=== PATIENT | male | born 1940 | race Two or more races ===

== ENCOUNTER 2021-10-27 15:31 | Inpatient (IN) ==
--- NOTE | 2021-10-27 16:19 | Emergency Department Note ---
History of Present Illness General Chief complaint: Weakness Stated complaint: CAN'T MOVE LT ARM, CAN'T MOVE LEGS, DR REFERRED Time Seen by Provider: 10/27/21 16:04 Source: patient and family (Daughter) Limitations: language barrier (Daughter is translating) History of Present Illness Provider complaint: Left arm weakness Onset (ago): day(s) Location: upper extremity and right Pain Consistency: + constant Maximum Pain Intensity: 2 Quality: + other (Unable to use left arm) Relieved By: + none Associated symptoms: + headaches; no confusion, no chest pain, no cough, no fever/chills, no malaise, no nausea/vomiting or no shortness of breath This is an 81-year-old male who presents with left arm weakness for the past 2 to 3 days. The patient normally has weakness in his legs due to an unknown illness. He is wheelchair-bound. He also had a stroke about 15 years ago and had developed residual right arm weakness. Over the past 2 to 3 days he has noticed that he has been unable to use the left upper extremity. He had no pain to the arm and did not become concerned initially. His family brings him in today. His daughter is translating for him. He does complain of a mild posterior headache but denies any neck pain. He has no numbness to the extremities. He has had no difficulty with his speech, vision or swallowing. He is normally hard of hearing. He denies any recent illness, fever, cough or cold symptoms, chest pain, shortness of breath, abdominal pain, vomiting, diarrhea or urinary symptoms. He is on aspirin daily which he takes. He denies any other blood thinners. Home Medications Medication Instructions Recorded Confirmed Type amlodipine 5 mg tablet 5 mg PO QAM 09/09/20 10/27/21 History atorvastatin 40 mg tablet 40 mg PO QAM 09/09/20 10/27/21 History cholecalciferol (vitamin D3) 25 25 mcg PO QAM 09/09/20 10/27/21 History mcg (1,000 unit) tablet (Vitamin D3) clopidogrel 75 mg tablet 75 mg PO QAM 09/09/20 10/27/21 History cyanocobalamin (vitamin B-12) 1,000 mcg PO QAM 09/09/20 10/27/21 History 1,000 mcg tablet (Vitamin B-12) duloxetine 60 mg capsule,delayed 60 mg PO QPM 09/09/20 10/27/21 History release finasteride 5 mg tablet 5 mg PO PM 09/09/20 10/27/21 History gabapentin 300 mg capsule 300 mg PO TID 09/09/20 10/27/21 History latanoprost 0.005 % eye drops 1 drp OPB HS 09/09/20 10/27/21 History meloxicam 7.5 mg tablet 7.5 mg PO QAM 09/09/20 10/27/21 History metformin 1,000 mg tablet 1,000 mg PO BIDM 09/09/20 10/27/21 History pantoprazole 40 mg tablet,delayed 40 mg PO QAM 09/09/20 10/27/21 History release sitagliptin 100 mg tablet (Januvia) 100 mg PO QAM 09/09/20 10/27/21 History tamsulosin 0.4 mg capsule 0.4 mg PO PM 09/09/20 10/27/21 History tramadol 50 mg tablet 50 mg PO HS 10/19/20 10/27/21 History albuterol sulfate 90 mcg/actuation 2 puff INHALATION Q4 PRN 10/27/21 10/27/21 History aerosol inhaler (Ventolin HFA) losartan 50 mg tablet 50 mg PO DAILY 10/27/21 10/27/21 History magnesium oxide 400 mg PO DAILY 10/27/21 10/27/21 History Allergies Allergy/AdvReac Type Severity Reaction Status Date / Time No Known Allergies Allergy Verified 10/27/21 16:29 Past Med/Surg History Medical History BPH (benign prostatic hyperplasia) Depression Diabetes NIDDM Gastritis GERD (gastroesophageal reflux disease) H/O poliomyelitis CHILD > RESIDUAL LEG WEAKNESS H/O: CVA (cerebrovascular accident) 10 YRS AGO > RIGHT HAND NUMBNESS > NO LONGER SEES NEURO Hypercholesterolemia Hypertension Leg weakness, bilateral Spinal stenosis of lumbar region Wheelchair bound Has been since CVA 10 yrs ago. Was previously able to self-transfer, but in the recenlty has not been able to move his LEs at all. Surgical History History of colonoscopy History of tooth extraction Hx of cataract extraction RT/LEFT Family History Daughter Family history of diabetes mellitus Other No family history of adverse response to anesthesia Social History Smoking Status: Former smoker Tobacco Type: Cigarettes Second Hand Exposure: Yes (IN THE PAST); Hx Alcohol Use: No Preferred Language: Tajik Communication Ability: Effective Location Analyst Required: No Beliefs That Will Affect Care: None marital status: Current Living Situation: Family Current Living Situation Comment: WITH DAUGHTER Feels Safe at Home: Yes Assistive Devices: Wheelchair Review of Systems See HPI for pertinent positives & negatives. and A total of 10 systems reviewed and were otherwise negative Physical Exam Vital Signs Vital Signs - 24 hr 10/27/21 15:34 10/27/21 17:34 Temperature 36.4 C L Temperature Source Temporal Artery Scan Pulse Rate 94 H Pulse Rate [Finger] 94 H Respiratory Rate 20 18 Respiratory Effort / Characteristics Non-Labored Non-Labored Respiratory Depth Normal Normal Blood Pressure 168/68 H Blood Pressure [Left Arm] 160/71 H Blood Pressure Mean 101 Blood Pressure Mean [Left Arm] 100 Blood Pressure Position [Left Arm] Lying Pulse Oximetry 99 99 Oxygen Delivery Method Room Air Room Air Sepsis Recent Fever Within 48 Hours No Sepsis New/Unexplained Change in Mental Status N/A Sepsis Action Taken by Nursing No Action Required Constitutional: Vital signs reviewed. Eyes: Pupils are equal round reactive to light. Conjunctiva are noninjected. ENT: Pharynx is clear without erythema or exudate. Mucous membranes are moist. Neck supple without meningeal signs. Respiratory: Clear to auscultation bilaterally. Breath sounds are equal bilaterally. Cardiovascular: Regular rate and rhythm. No rubs or gallops. GI: Soft, nondistended and nontender. Bowel sounds are present. Musculoskeletal: No peripheral edema. No lower extremity tenderness. Integumentary: No cyanosis. or jaundice. Neurologic: The patient is awake and alert. Cranial nerves II-XII are intact. Motor is 2 out of 5 in the lower extremities bilaterally as well as the left upper extremity. 3 out of 5 strength in the right upper extremity. Sensation is intact to light touch all extremities. Normal speech. Bilateral pronator drift greater on the left side which falls to the bed. Psychiatric: Normal affect. Not anxious appearing. Course Administered Medications Discontinued Medications Ioversol (Optiray 320 125ml) 120 ml IV ONCE ONE Stop: 10/27/21 17:17 Last Admin: 10/27/21 17:16 Dose: 1 ml Documented by: [id number] Medical Decision Making Differential Diagnosis CVA, TIA, intracranial mass, intracranial hemorrhage, thromboembolism, complex migraine Medical Records Attestation: I reviewed the patient's medical records. I did perform a limited focused review of portions of the patient's old chart on the electronic medical record. The patient has had no recent pertinent visits to this hospital. Home Medications Current Medication List: was personally reviewed by me Laboratory Data Attestation: I reviewed the patient's lab results. Result diagrams: 10/27/21 16:11 10/27/21 16:11 Lab Results 10/27/21 10/27/21 10/27/21 Range/Units 16:11 16:11 16:11 WBC 9.56 (4.8-10.8) K/uL RBC 4.51 L (4.7-6.1) M/uL Hgb 9.6 L (14.0-18.0) g/dL Hct 31.1 L (42-52) % MCV 69.0 L (80-100) fL MCH 21.3 L (25-34) pg MCHC 30.9 L (32-36) g/dL RDW Std Deviation 40.5 (36.4-46.3) fL RDW Coeff of David 16.3 H (11.5-14.5) % Plt Count 633 H (130-400) K/uL MPV 9.5 (7.4-10.4) fL Immature Gran % (Auto) 0.2 % Neut % (Auto) 72.8 % Lymph % (Auto) 17.1 % [place]arton % (Auto) 5.3 % Eos % (Auto) 4.3 % Baso % (Auto) 0.3 % Neut # (Auto) 6.96 H (1.4-6.5) K/uL Lymph # (Auto) 1.63 (1.2-3.4) K/uL [place]arton # (Auto) 0.51 (0.11-0.59) K/uL Eos # (Auto) 0.41 (0-0.5) K/uL Baso # (Auto) 0.03 (0-0.2) K/uL Immature Gran # (Auto) 0.02 (0.00-0.02) K/uL Hypochromasia Present Microcytosis Present Ovalocytes 1+ PT 10.4 (9.0-12.0) Seconds INR 1.0 (0.9-1.1) APTT 25.2 (21.0-31.0) Seconds PTT Ratio 0.9 Sodium 136 (136-145) mmol/L Potassium 4.7 (3.5-5.1) mmol/L Chloride 105 (98-107) mmol/L Carbon Dioxide 19 L (21-32) mmol/L Anion Gap 12 H (3-11) BUN 36 H (6-23) mg/dl Creatinine 0.78 (0.6-1.4) mg/dl Est Cr Clr Drug Dosing Not Reportable Est GFR ( Amer) 96.7 ml/min Est GFR (Non-Af Amer) 83.5 ml/min BUN/Creatinine Ratio 46.2 H (10-20) Glucose 125 H (70-99(Fasting)) mg/dl Calcium 9.2 (8.5-10.1) mg/dl Magnesium 1.6 L (1.7-2.4) mg/dl Total Bilirubin 0.2 (0.2-1.0) mg/dl AST 13 (13-39) U/L ALT 12 (7-52) U/L Alkaline Phosphatase 53 (34-104) U/L Troponin I < 0.03 (0-0.04) ng/ml Total Protein 8.5 H (6.0-8.3) gm/dl Albumin 3.9 (3.4-5.0) gm/dl Globulin 4.6 H (2.5-4.0) gm/dl Albumin/Globulin Ratio 0.8 L (0.9-2) SARS-CoV-2, RNA, NAAT (NEGATIVE) 10/27/21 Range/Units 16:56 WBC (4.8-10.8) K/uL RBC (4.7-6.1) M/uL Hgb (14.0-18.0) g/dL Hct (42-52) % MCV (80-100) fL MCH (25-34) pg MCHC (32-36) g/dL RDW Std Deviation (36.4-46.3) fL RDW Coeff of David (11.5-14.5) % Plt Count (130-400) K/uL MPV (7.4-10.4) fL Immature Gran % (Auto) % Neut % (Auto) % Lymph % (Auto) % [place]arton % (Auto) % Eos % (Auto) % Baso % (Auto) % Neut # (Auto) (1.4-6.5) K/uL Lymph # (Auto) (1.2-3.4) K/uL [place] # (Auto) (0.11-0.59) K/uL Eos # (Auto) (0-0.5) K/uL Baso # (Auto) (0-0.2) K/uL Immature Gran # (Auto) (0.00-0.02) K/uL Hypochromasia Microcytosis Ovalocytes PT (9.0-12.0) Seconds INR (0.9-1.1) APTT (21.0-31.0) Seconds PTT Ratio Sodium (136-145) mmol/L Potassium (3.5-5.1) mmol/L Chloride (98-107) mmol/L Carbon Dioxide (21-32) mmol/L Anion Gap (3-11) BUN (6-23) mg/dl Creatinine (0.6-1.4) mg/dl Est Cr Clr Drug Dosing Est GFR ( Amer) ml/min Est GFR (Non-Af Amer) ml/min BUN/Creatinine Ratio (10-20) Glucose (70-99(Fasting)) mg/dl Calcium (8.5-10.1) mg/dl Magnesium (1.7-2.4) mg/dl Total Bilirubin (0.2-1.0) mg/dl AST (13-39) U/L ALT (7-52) U/L Alkaline Phosphatase (34-104) U/L Troponin I (0-0.04) ng/ml Total Protein (6.0-8.3) gm/dl Albumin (3.4-5.0) gm/dl Globulin (2.5-4.0) gm/dl Albumin/Globulin Ratio (0.9-2) SARS-CoV-2, RNA, NAAT NEGATIVE (NEGATIVE) Imaging Data Radiologist's Impression: Chest X-Ray 10/27/21 16:13 XR chest 1V portable HISTORY: 81 years-old Male Stroke Like Symptoms acute strokelike symptoms COMPARISON: 09/09/2020 TECHNIQUE: Semierect AP view of the chest FINDINGS: Cardiac silhouette is mildly enlarged. Calcified plaque of the thoracic aorta. No pneumothorax or large pleural effusion or overt pulmonary edema. Unchanged mild interstitial coarsening with blunting of the costophrenic angles. Lungs are hypoinflated. Degenerative changes of the shoulders and spine. IMPRESSION: No acute process. ACT 112: Negative or not required by law. The above report was generated using voice recognition software. It may contain grammatical, syntax or spelling errors. Electronically signed by: Kurt Gallo M.D. 10/27/2021 4:[address] 10/27/21 16:13 CT head/brain wo con CLINICAL HISTORY: 81 years-old Male with left arm weakness x2 days. Acute strokelike symptoms TECHNIQUE: Multiple axial CT images of the head were obtained without contrast. A dose lowering technique was utilized adhering to the principles of ALARA. CT DOSE: 1163.19 mGy.cm COMPARISON: CTA head and neck of same day, brain MRI 09/10/2020. FINDINGS: No acute intracranial hemorrhage, midline shift, intracranial mass, hydro cephalus, territorial ischemia or abnormal extra-axial collection. Age-related involutional changes. Chronic left occipital lobe infarct with encephalomalacia and neck secondary to cardiomegaly the left lateral ventricle. White matter hypodensities suggest chronic microvascular ischemic disease. Chronic lacunar infarcts of the left cerebellar hemisphere. The calvarium is intact. Mastoid air cells are generally clear. Mucosal thickening of the partially imaged maxillary sinuses. Unremarkable soft tissues. Prior bilateral lens repair. IMPRESSION: 1. No acute intracranial abnormality. 2. Chronic left posterior cerebral artery infarct with chronic lacunar infarcts of the left cerebellum. ACT 112: Negative or not required by law. The above report was generated using voice recognition software. It may contain grammatical, syntax or spelling errors. Electronically signed by: Kurt Gallo M.D. 10/27/2021 5:30 PM Head CTA 10/27/21 16:13 CT angio neck with con, CT angio head w con CLINICAL HISTORY: 81 years-old Male with Stroke Like Symptoms. Acute strokelike symptoms COMPARISON STUDY: Head CT of same day, brain MRI 09/10/2020 TECHNIQUE: Following the IV administration of 120 mL of Optiray, CT angiogram of the head and neck was performed from the aortic arch to the skull apex. Images are reviewed in the axial, sagittal, and coronal planes. 3-D MIPS images are created and assessed. IV contrast was administered without complication. All measurements were calculated based on NASCET criteria. A dose lowering technique was utilized adhering to the principles of ALARA. FINDINGS: Atherosclerosis of the thoracic aorta and proximal great vessels. There is mild stenosis of the proximal left subclavian artery on image 75. The innominate and imaged right subclavian artery appear patent. The common carotid arteries are patent. Atherosclerotic plaque of the bilateral carotid bulbs results in less than 50% stenosis bilaterally. Calcified plaque is also noted within the cavernous, clinoid and supraclinoid segments of the internal carotid arteries. The middle and anterior cerebral arteries are patent. The right A1 segment is hypoplastic which is likely developmental. The left vertebral artery is dominant. Moderate stenosis at the origin of the left vertebral artery. Areas of high-grade stenosis noted within the proximal V1 segment of the right vertebral artery. Mild multifocal atherosclerotic plaque noted throughout the V2 and V3 segments of the right vertebral artery. The basilar artery is patent. Mild to moderate multifocal stenosis of the posterior cerebral arteries, greatest on the left. The cerebral venous sinuses are patent. No aneurysm, dissection or arterial occlusion identified. There is no abnormal intracranial enhancement. 5 mm solid nodule of the right upper lobe, image 38. 7 mm nodule of the right upper lobe on image 33 is suggestive of a lymph node. Probable lymph nodes of the left upper lobe are also noted measuring up to 6 mm. No pneumothorax. Nonspecific mildly prominent paratracheal lymph nodes. Multilevel degenerative changes of the cervical spine. There is moderate to severe partial opacification of the left maxillary sinus. Levoscoliosis of the cervical spine. IMPRESSION: 1. Chronic left posterior cerebral artery infarct with chronic lacunar infarcts of the left cerebellar hemisphere. 2. Atherosclerotic plaque of the left greater than right carotid bulbs results i n less than 50% stenosis bilaterally. 3. 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 4. Mild to moderate multifocal stenoses of the posterior cerebral arteries. 5. No aneurysm, dissection or arterial occlusion. 6. Subcentimeter solid nodules in the upper lobes. Please refer to below summary of Fleischner criteria recommendations for follow- up of incidental CT nodules (Wil Clinton, Guidelines for management of small pulmonary nodules detected on CT scans: A statement from the Fleischner Society, Radiology [phone]: [phone].) SOLID NODULES Multiple nodules size: <6 mm * Low risk patients: no routine follow-up * high risk patients: optional CT at 12 months Multiple nodules size: 6-8 mm * Low risk patients: follow-up at 3-6 months, then consider further follow-up at 18-24 months * high risk patients: follow-up at 3-6 months, then at 18-24 months if no change Multiple nodules size: >8 mm * Low risk patients: follow-up at 3-6 months, then consider further follow-up at 18-24 months * high risk patients: follow-up at 3-6 months, then at 18-24 months if no change Note: newly detected indeterminate nodule in persons 35 years of age or older. * Low risk patients: minimal or absent history of smoking and/or other known risk factors * high risk patients: history of smoking or of other known risk factors (e.g. first degree relative with lung cancer, or exposure to asbestos, radon, uranium) * if a nodule up to 8 mm is partly solid or is ground glass further follow-up is required after 24 months to exclude possible slow growing adenocarcinoma (SUAD) ACT 112: Negative or not required by law. The above report was generated using voice recognition software. It may contain grammatical, syntax or spelling errors. Electronically signed by: Kurt Gallo M.D. 10/27/2021 5:43 PM Neck CTA 10/27/21 16:13 CT angio neck with con, CT angio head w con CLINICAL HISTORY: 81 years-old Male with Stroke Like Symptoms. Acute strokelike symptoms COMPARISON STUDY: Head CT of same day, brain MRI 09/10/2020 TECHNIQUE: Following the IV administration of 120 mL of Optiray, CT angiogram of the head and neck was performed from the aortic arch to the skull apex. Images are reviewed in the axial, sagittal, and coronal planes. 3-D MIPS images are created and assessed. IV contrast was administered without complication. All measurements were calculated based on NASCET criteria. A dose lowering technique was utilized adhering to the principles of ALARA. FINDINGS: Atherosclerosis of the thoracic aorta and proximal great vessels. There is mild stenosis of the proximal left subclavian artery on image 75. The innominate and imaged right subclavian artery appear patent. The common carotid arteries are patent. Atherosclerotic plaque of the bilateral carotid bulbs results in less than 50% stenosis bilaterally. Calcified plaque is also noted within the cavernous, clinoid and supraclinoid segments of the internal carotid arteries. The middle and anterior cerebral arteries are patent. The right A1 segment is hypoplastic which is likely developmental. The left vertebral artery is dominan t. Moderate stenosis at the origin of the left vertebral artery. Areas of high- grade stenosis noted within the proximal V1 segment of the right vertebral artery. Mild multifocal atherosclerotic plaque noted throughout the V2 and V3 segments of the right vertebral artery. The basilar artery is patent. Mild to moderate multifocal stenosis of the posterior cerebral arteries, greatest on the left. The cerebral venous sinuses are patent. No aneurysm, dissection or arterial occlusion identified. There is no abnormal intracranial enhancement. 5 mm solid nodule of the right upper lobe, image 38. 7 mm nodule of the right upper lobe on image 33 is suggestive of a lymph node. Probable lymph nodes of the left upper lobe are also noted measuring up to 6 mm. No pneumothorax. No nspecific mildly prominent paratracheal lymph nodes. Multilevel degenerative changes of the cervical spine. There is moderate to severe partial opacification of the left maxillary sinus. Levoscoliosis of the cervical spine. IMPRESSION: 1. Chronic left posterior cerebral artery infarct with chronic lacunar infarcts of the left cerebellar hemisphere. 2. Atherosclerotic plaque of the left greater than right carotid bulbs results in less than 50% stenosis bilaterally. 3. 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 4. Mild to moderate multifocal stenoses of the posterior cerebral arteries. 5. No aneurysm, dissection or arterial occlusion. 6. Subcentimeter solid nodules in the upper lobes. Please refer to below summary of Fleischner criteria recommendations for follow- up of incidental CT nodules (Wil Clinton, Guidelines for management of small pulmonary nodules detected on CT scans: A statement from the Fleischner Society, Radiology [phone]: [phone].) SOLID NODULES Multiple nodules size: <6 mm * Low risk patients: no routine follow-up * high risk patients: optional CT at 12 months Multiple nodules size: 6-8 mm * Low risk patients: follow-up at 3-6 months, then consider further follow-up at 18-24 months * high risk patients: follow-up at 3-6 months, then at 18-24 months if no change Multiple nodules size: >8 mm * Low risk patients: follow-up at 3-6 months, then consider further follow-up at 18-24 months * high risk patients: follow-up at 3-6 months, then at 18-24 months if no change Note: newly detected indeterminate nodule in persons 35 years of age or older. * Low risk patients: minimal or absent history of smoking and/or other known risk factors * high risk patients: history of smoking or of other known risk factors (e.g. first degree relative with lung cancer, or exposure to asbestos, radon, uranium) * if a nodule up to 8 mm is partly solid or is ground glass further follow-up is required after 24 months to exclude possible slow growing adenocarcinoma (SUAD) ACT 112: Negative or not required by law. The above report was generated using voice recognition software. It may contain grammatical, syntax or spelling errors. Electronically signed by: Kurt Gallo M.D. 10/27/2021 5:43 PM ECG Data Attestation: I personally reviewed and interpreted this ECG as follows: Indication: + other (Strokelike symptoms) Rate (beats per minute): 90 Rhythm: + normal sinus ECG [place]: + Left axis deviation ECG ST segments: no ST elevation ECG Findings: no PVCs Comparison ECG Date: from (September 09, 2020) Change: no significant change MDM Narrative I did evaluate the patient as noted above. I did obtain history from the patient as well as his daughter who is translating for him. He has had left arm weakness for the past 2 to 3 days. On exam he has weakness throughout his extremities due to prior stroke and illness. His only new neurologic finding today is weakness in the left arm which she was previously able to use. He is not a TPA candidate as the patient symptoms started 2 to 3 days ago. IV access was established. I did place an order for continuous cardiac monitoring. The monitor showed normal sinus rhythm at a rate of 92 bpm. I did order and personally review the patient's 12-lead EKG as described above. He has no acute ischemic changes. I did order and personally reviewed the images of the patient's chest x-ray as described above. There is no evidence of pneumonia. I did order and review the patient's blood work as noted in the electronic medical record. CBC demonstrates a white count of 9.5 and a platelet count of 633. Hemoglobin is 9.6. His last hemoglobin was 10.9 in October 2020. Electrolytes demonstrate a CO2 of 19 and a mag of 1.6. LFTs are unremarkable. Troponin is negative. I did order a CT of the head and CT angiogram of the head neck. I did review the images myself as well as the radiology report as described above. CT of the head shows a chronic left posterior cerebral artery infarct with chronic lacunar infarcts of the left cerebellum. Otherwise no acute abnormality. CT angiogram demonstrates atherosclerotic plaque of the left greater than right carotid bulbs resulting in less than 50% stenosis aaron aterally. There is stenosis of the proximal V1 segment of the vertebral arteries severe on the right. Mild to moderate multifocal stenosis of the posterior cerebral arteries. I did discuss the test results with the patient and his daughter. He will be hospitalized for MRI and further work-up. I did discuss the case with the hospitalist and manager case management. Covid testing is negative. Impression & Plan Left arm weakness, Chronic anemia Discharge Plan Visit Data Chief Complaint: Weakness Stated Complaint: CAN'T MOVE LT ARM, CAN'T MOVE LEGS, DR REFERRED ED Provider: Bert Feldman Discharge Problem: Left arm weakness, Chronic anemia Patient Disposition: Being Evaluated by Hospitalist Forms Stand Alone Forms: My [facility] Prescriptions Prescriptions: No Action latanoprost 0.005 % drops 1 drp OPB HS RF: 0 atorvastatin 40 mg tablet 40 mg PO QAM RF: 0 cyanocobalamin (vitamin B-12) [Vitamin B-12] 1,000 mcg Tablet 1,000 mcg PO QAM RF: 0 clopidogrel 75 mg tablet 75 mg PO QAM RF: 0 amlodipine 5 mg tablet 5 mg PO QAM RF: 0 meloxicam 7.5 mg tablet 7.5 mg PO QAM RF: 0 tamsulosin 0.4 mg Capsule 0.4 mg PO PM RF: 0 pantoprazole 40 mg tablet,delayed release (DR/EC) 40 mg PO QAM RF: 0 metformin 1,000 mg tablet 1,000 mg PO BIDM RF: 0 gabapentin 300 mg capsule 300 mg PO TID RF: 0 finasteride 5 mg tablet 5 mg PO PM RF: 0 duloxetine 60 mg capsule,delayed release(DR/EC) 60 mg PO QPM RF: 0 cholecalciferol (vitamin D3) [Vitamin D3] 25 mcg (1,000 unit) Tablet 25 mcg PO QAM RF: 0 Januvia 100 mg tablet 100 mg PO QAM RF: 0 tramadol 50 mg Tablet 50 mg PO HS RF: 0 magnesium oxide 400 mg magnesium Tablet 400 mg PO DAILY RF: 0 losartan 50 mg tablet 50 mg PO DAILY RF: 0 albuterol sulfate [Ventolin HFA] 90 mcg/actuation HFA aerosol inhaler 2 puff INHALATION Q4 PRN (Reason: sough,sob,wheeze) RF: 0 Referrals Referrals: Arnol Mann MD [Primary Care Provider] -
[2021-10-27 16:22] LABS: Basophils # (auto) 0.03 K/uL (0-0.2); Basophils % (auto) 0.3 %; Eosinophils # (auto) 0.41 K/uL (0-0.5); Eosinophils % (auto) 4.3 %; Hematocrit (blood only) 31.1 % (42-52); Hemoglobin 9.6 g/dL (14.0-18.0); Immature Granulocytes # (auto) 0.02 K/uL (0.00-0.02); Immature Granulocytes % (auto) 0.2 %; Lymphocytes # (auto) 1.63 K/uL (1.2-3.4); Lymphocytes % (auto) 17.1 %; Mean Corpuscular Hemoglobin 21.3 pg (25-34); Mean Corpuscular Hgb Conc 30.9 g/dL (32-36); Mean Platelet Volume 9.5 fL (7.4-10.4); Monocytes # (auto) 0.51 K/uL (0.11-0.59); Monocytes % (auto) 5.3 %; Neutrophils # (auto) 6.96 K/uL (1.4-6.5); Neutrophils % (auto) 72.8 %; Platelet Count 633 K/uL (130-400); RDW Coefficient of Variation 16.3 % (11.5-14.5); RDW Standard Deviation 40.5 fL (36.4-46.3); Red Blood Count 4.51 M/uL (4.7-6.1); White Blood Count 9.56 K/uL (4.8-10.8)
[2021-10-27 16:33] LABS: Partial Thromboplastin Ratio 0.9; Partial Thromboplastin Time 25.2 Seconds (21.0-31.0); Prothrombin Time 10.4 Seconds (9.0-12.0)
--- NOTE | 2021-10-27 16:40 | XRay Report ---
XR chest 1V portable HISTORY: 81 years-old Male Stroke Like Symptoms acute strokelike symptoms COMPARISON: 09/09/2020 TECHNIQUE: Semierect AP view of the chest FINDINGS: Cardiac silhouette is mildly enlarged. Calcified plaque of the thoracic aorta. No pneumothorax or lar ge pleural effusion or overt pulmonary edema. Unchanged mild interstitial coarsening with blunting of the costophrenic angles. Lungs are hypoinflated. Degenerative changes of the shoulders and spine. IMPRESSION: No acute process. ACT 112: Negative or not required by law. The above report was generated using voice recognition software. It may contain grammatical, syntax o r spelling errors. Electronically signed by: Kurt Gallo M.D. 10/27/2021 4:39 PM
[2021-10-27 16:45] LABS: Troponin I < 0.03 ng/ml (0-0.04)
[2021-10-27 16:47] LABS: Alanine Aminotransferase 12 U/L (7-52); Albumin Globulin Ratio 0.8 (0.9-2); Albumin Level 3.9 gm/dl (3.4-5.0); Alkaline Phosphatase 53 U/L (34-104); Anion Gap 12 (3-11); Aspartate Aminotransferase 13 U/L (13-39); BUN Creatinine Ratio 46.2 (10-20); Bilirubin,Total 0.2 mg/dl (0.2-1.0); Blood Urea Nitrogen 36 mg/dl (6-23); Calcium 9.2 mg/dl (8.5-10.1); Carbon Dioxide 19 mmol/L (21-32); Chloride 105 mmol/L (98-107); Est GFR (African American) 96.7 ml/min; Est GFR (Non-African American) 83.5 ml/min; Globulin 4.6 gm/dl (2.5-4.0); Glucose 125 mg/dl (70-99(Fasting)); Magnesium 1.6 mg/dl (1.7-2.4); Potassium 4.7 mmol/L (3.5-5.1); Sodium 136 mmol/L (136-145); Total Protein 8.5 gm/dl (6.0-8.3)
[2021-10-27 17:08] LABS: Hypochromasia Present; Microcytosis Present; Ovalocytes 1+
[2021-10-27] MEDS ORDERED: OPTIRAY 320 125ml IV ONE (17:16)
--- NOTE | 2021-10-27 17:31 | CT Scan Report ---
CT head/brain wo con CLINICAL HISTORY: 81 years-old Male with left arm weakness x2 days. Acute strokelike symptoms TECHNIQUE: Multiple axial CT images of the head were obtained without contrast. A dose lowering tech nique was utilized adhering to the principles of ALARA. CT DOSE: 1163.19 mGy.cm COMPARISON: CTA head and neck of same day, brain MRI 09/10/2020. FINDINGS: No acute intracranial hemorrhage, midline shift, intracranial mass, hydrocephalus, territorial ischem ia or abnormal extra-axial collection. Age-related involutional changes. Chronic left occipital lobe infarct with encephalomalacia and neck secondary to cardiomegaly the left lateral ventricle. White ma tter hypodensities suggest chronic microvascular ischemic disease. Chronic lacunar infarcts of the le ft cerebellar hemisphere. The calvarium is intact. Mastoid air cells are generally clear. Mucosal thickening of the partially imaged maxillary sinuses. Unremarkable soft tissues. Prior bilateral lens repair. IMPRESSION: 1. No acute intracranial abnormality. 2. Chronic left posterior cerebral artery infarct with chronic lacunar infarcts of the left cerebellu m. ACT 112: Negative or not required by law. The above report was generated using voice recognition software. It may contain grammatical, syntax o r spelling errors. Electronically signed by: Kurt Gallo M.D. 10/27/2021 5:30 PM
--- NOTE | 2021-10-27 17:45 | CT Scan Report ---
CT angio neck with con, CT angio head w con CLINICAL HISTORY: 81 years-old Male with Stroke Like Symptoms. Acute strokelike symptoms COMPARISON STUDY: Head CT of same day, brain MRI 09/10/2020 TECHNIQUE: Following the IV administration of 120 mL of Optiray, CT angiogram of the head and neck wa s performed from the aortic arch to the skull apex. Images are reviewed in the axial, sagittal, and c oronal planes. 3-D MIPS images are created and assessed. IV contrast was administered without complic ation. All measurements were calculated based on NASCET criteria. A dose lowering technique was util ized adhering to the principles of ALARA. FINDINGS: Atherosclerosis of the thoracic aorta and proximal great vessels. There is mild stenosis of the proxi mal left subclavian artery on image 75. The innominate and imaged right subclavian artery appear ramon nt. The common carotid arteries are patent. Atherosclerotic plaque of the bilateral carotid bulbs res ults in less than 50% stenosis bilaterally. Calcified plaque is also noted within the cavernous, clin oid and supraclinoid segments of the internal carotid arteries. The middle and anterior cerebral dana vickie are patent. The right A1 segment is hypoplastic which is likely developmental. The left vertebra l artery is dominant. Moderate stenosis at the origin of the left vertebral artery. Areas of high-gra de stenosis noted within the proximal V1 segment of the right vertebral artery. Mild multifocal ather osclerotic plaque noted throughout the V2 and V3 segments of the right vertebral artery. The basilar artery is patent. Mild to moderate multifocal stenosis of the posterior cerebral arteries, greatest o n the left. The cerebral venous sinuses are patent. No aneurysm, dissection or arterial occlusion fer ntified. There is no abnormal intracranial enhancement. 5 mm solid nodule of the right upper lobe, image 38. 7 mm nodule of the right upper lobe on image 33 is suggestive of a lymph node. Probable lymph nodes of the left upper lobe are also noted measuring u p to 6 mm. No pneumothorax. Nonspecific mildly prominent paratracheal lymph nodes. Multilevel degener ative changes of the cervical spine. There is moderate to severe partial opacification of the left ma xillary sinus. Levoscoliosis of the cervical spine. IMPRESSION: 1. Chronic left posterior cerebral artery infarct with chronic lacunar infarcts of the left cerebella r hemisphere. 2. Atherosclerotic plaque of the left greater than right carotid bulbs results in less than 50% steno sis bilaterally. 3. 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 4. Mild to moderate multifocal stenoses of the posterior cerebral arteries. 5. No aneurysm, dissection or arterial occlusion. 6. Subcentimeter solid nodules in the upper lobes. Please refer to below summary of Fleischner criteria recommendations for follow-up of incidental CT n odules (Wil [place], Guidelines for management of small pulmonary nodules detected on CT scans: A sta tement from the Fleischner Society, Radiology 237: [phone].) SOLID NODULES Multiple nodules size: <6 mm * Low risk patients: no routine follow-up * high risk patients: optional CT at 12 months Multiple nodules size: 6-8 mm * Low risk patients: follow-up at 3-6 months, then consider further follow-up at 18-24 months * high risk patients: follow-up at 3-6 months, then at 18-24 months if no change Multiple nodules size: >8 mm * Low risk patients: follow-up at 3-6 months, then consider further follow-up at 18-24 months * high risk patients: follow-up at 3-6 months, then at 18-24 months if no change Note: newly detected indeterminate nodule in persons 35 years of age or older. * Low risk patients: minimal or absent history of smoking and/or other known risk factors * high risk patients: history of smoking or of other known risk factors (e.g. first degree relative with lung cancer, or exposure to asbestos, radon, uranium) * if a nodule up to 8 mm is partly solid or is ground glass further follow-up is required after 24 m onths to exclude possible slow growing adenocarcinoma (SUAD) ACT 112: Negative or not required by law. The above report was generated using voice recognition software. It may contain grammatical, syntax o r spelling errors. Electronically signed by: Kurt Gallo M.D. 10/27/2021 5:43 PM
--- NOTE | 2021-10-27 19:19 | History & Physical Report ---
Date of Service October 27, 2021 Assessment & Plan (1) Left arm weakness: Plan: Presented with left upper extremity weakness for the last 2 days without any sensory impairment No pain involving the shoulder joint CT scan of the head did not show any new stroke CTA showed: 1.Chronic left posterior cerebral artery infarct with chronic lacunar infarcts of the left cerebellar hemisphere. 2. Atherosclerotic plaque of the left greater than right carotid bulbs results in less than 50% stenosis bilaterally. 3. 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 4. Mild to moderate multifocal stenoses of the posterior cerebral arteries. 5. No aneurysm, dissection or arterial occlusion. 6. Subcentimeter solid nodules in the upper lobes. Has been on Plavix and will add aspirin 81 mg for now We will get MRI of the head Neurological consult tomorrow PT and OT (2) H/O: CVA (cerebrovascular accident): Plan: History of a stroke with right hemiparesis (3) H/O poliomyelitis: Plan: Poliomyelitis with paraplegia May be disease progression given the new symptoms of left upper extremity weakness (4) Diabetes: Plan: We will hold Metformin and Jardiance Start SSI and check hemoglobin A1c (5) Spinal stenosis of lumbar region: Plan: Has chronic back pain We will continue current medications (6) Hypertension: Plan: Pressure remains on the upper side at 160 systolic We will continue current medications (7) Hypercholesterolemia: Plan: Continue statin DVT prophylaxis Subcu heparin CODE STATUS Full History of Present Illness Chief Complaint: Left upper extremity weakness for the last 2 days Primary Care Provider: Arnol Mann MD He is an 81-year-old male with significant past medical history including poliomyelitis with paraplegia, type 2 diabetes, hypertension, hyperlipidemia, spinal stenosis with chronic back pain, COPD and history of CVA with right-sided hemiparesis apparently has been complaining of left upper extremity weakness for the last 2 days. He denies any numbness and or tingling involving the left upper extremity and denies any significant pain involving the left shoulder. Part of the history was taken from the daughter. She was noted to have left upper extremity weakness for the last 2 days to the extent that he cannot sit on a chair which he was doing before and he has been wheelchair-bound due to polio He complains of some headache but without any blurred vision, any problem with his speech or any problem with swallowing. He also complains to have back pain and pain in the rectal area especially during defecation and which has been an ongoing problem though he is not constipated. He was noted to be minimally hypertensive at 160/71 in the emergency room and apparently scan did show stenosis involving the neck vessels with old stroke but no new lesions. He will have an MRI rule out any possibility of a stroke during this admission. Allergies Allergy/AdvReac Type Severity Reaction Status Date / Time No Known Allergies Allergy Verified 10/27/21 16:29 Home Medications Medication Instructions Recorded Confirmed Type amlodipine 5 mg tablet 5 mg PO QAM 09/09/20 10/27/21 History atorvastatin 40 mg tablet 40 mg PO QAM 09/09/20 10/27/21 History cholecalciferol (vitamin D3) 25 25 mcg PO QAM 09/09/20 10/27/21 History mcg (1,000 unit) tablet (Vitamin D3) clopidogrel 75 mg tablet 75 mg PO QAM 09/09/20 10/27/21 History cyanocobalamin (vitamin B-12) 1,000 mcg PO QAM 09/09/20 10/27/21 History 1,000 mcg tablet (Vitamin B-12) duloxetine 60 mg capsule,delayed 60 mg PO QPM 09/09/20 10/27/21 History release finasteride 5 mg tablet 5 mg PO PM 09/09/20 10/27/21 History gabapentin 300 mg capsule 300 mg PO TID 09/09/20 10/27/21 History latanoprost 0.005 % eye drops 1 drp OPB HS 09/09/20 10/27/21 History meloxicam 7.5 mg tablet 7.5 mg PO QAM 09/09/20 10/27/21 History metformin 1,000 mg tablet 1,000 mg PO BIDM 09/09/20 10/27/21 History pantoprazole 40 mg tablet,delayed 40 mg PO QAM 09/09/20 10/27/21 History release sitagliptin 100 mg tablet (Januvia) 100 mg PO QAM 09/09/20 10/27/21 History tamsulosin 0.4 mg capsule 0.4 mg PO PM 09/09/20 10/27/21 History tramadol 50 mg tablet 50 mg PO HS 10/19/20 10/27/21 History albuterol sulfate 90 mcg/actuation 2 puff INHALATION Q4 PRN 10/27/21 10/27/21 History aerosol inhaler (Ventolin HFA) losartan 50 mg tablet 50 mg PO DAILY 10/27/21 10/27/21 History magnesium oxide 400 mg PO DAILY 10/27/21 10/27/21 History Past Med/Surg History Medical History BPH (benign prostatic hyperplasia) Depression Diabetes NIDDM Gastritis GERD (gastroesophageal reflux disease) H/O poliomyelitis CHILD > RESIDUAL LEG WEAKNESS H/O: CVA (cerebrovascular accident) 10 YRS AGO > RIGHT HAND NUMBNESS > NO LONGER SEES NEURO Hypercholesterolemia Hypertension Leg weakness, bilateral Spinal stenosis of lumbar region Wheelchair bound Has been since CVA 10 yrs ago. Was previously able to self-transfer, but in the recenlty has not been able to move his LEs at all. Surgical History History of colonoscopy History of tooth extraction Hx of cataract extraction RT/LEFT Family History Daughter Family history of diabetes mellitus Other No family history of adverse response to anesthesia Social History Smoking Status: Former smoker Tobacco Type: Cigarettes Second Hand Exposure: Yes (IN THE PAST); Hx Alcohol Use: No Preferred Language: Luxembourger Communication Ability: Effective Monorail Hooker Required: No Beliefs That Will Affect Care: None marital status: Current Living Situation: Family Current Living Situation Comment: WITH DAUGHTER Feels Safe at Home: Yes Assistive Devices: Wheelchair Review of Systems Review of Systems: All systems reviewed & are unremarkable except as noted in HPI & below Musculoskeletal: Left upper extremity weakness Neurologic: Alert and awake. Speech not totally normal but nothing changed compared with prior, Physical Exam Physical Exam: Lying in bed comfortably Constitutional: well developed, well nourished, + ill appearing and average body habitus Eyes: PERRL, conjunctivae normal, anicteric sclerae ENMT: external ear and nose normal, oropharynx normal Neck: trachea midline, no thyromegaly Respiratory: no respiratory distress Auscultation: + diminished lung sounds; no crackles Cardiovascular: Rate/Rhythm: regular rate and regular rhythm; not tachycardic Heart Sounds: normal S1 and normal S2; no murmur Extremities: + edema (Trace edema bilaterally) Gastrointestinal (Abdomen): Inspection/Auscultation: normal bowel sounds; abdomen not distended Percussion/Palpation: abdomen soft; abdomen nontender Musculoskeletal: No acute arthritis involving any joint Neurologic: normal touch/pain/proprioception Alert and awake. Has paraplegia with flexion deformities of the lower extremities. Can minimally move lower extremities. Has right-sided upper extremity weakness secondary to prior stroke. New left upper extremity weakness of about 2/5 with intact sensation. He does have flexion changes involving the fingers. Results & Data Results & Data ([facility]) Vital Signs (Past 12 Hours) Vital Signs Temp Pulse Pulse Resp BP BP Pulse Ox 10/27/21 17:34 94 H 18 160/71 H 99 10/27/21 15:34 36.4 C L 94 H 20 168/68 H 99 Laboratory Results Short CBC 10/27/21 Range/Units 16:11 WBC 9.56 (4.8-10.8) K/uL Hgb 9.6 L (14.0-18.0) g/dL Hct 31.1 L (42-52) % Plt Count 633 H (130-400) K/uL BMP 10/27/21 16:11 Sodium 136 Potassium 4.7 Chloride 105 Carbon Dioxide 19 L BUN 36 H Creatinine 0.78 Glucose 125 H Calcium 9.2 Cardiac Enzymes 10/27/21 Range/Units 16:11 Troponin I < 0.03 (0-0.04) ng/ml Liver Function 10/27/21 Range/Units 16:11 Total Bilirubin 0.2 (0.2-1.0) mg/dl AST 13 (13-39) U/L ALT 12 (7-52) U/L Alkaline Phosphatase 53 (34-104) U/L Albumin 3.9 (3.4-5.0) gm/dl Medications Administered Current Inpatient Medications Aspirin (Aspirin 81 Mg Ectab) 81 mg PO DAILY AYDEN Stop: 11/26/21 19:14 Enoxaparin Sodium (Enoxaparin Inj 40 Mg/0.4 Ml Syr) 40 mg SQ QAM AYDEN Stop: 11/26/21 19:14 Code Status & VTE Plan VTE Prophylaxis Plan VTE Prophylaxis will be ordered: Yes (1) Spinal stenosis of lumbar region Neurogenic claudication status: with neurogenic claudication Qualified Code(s): M48.062 - Spinal stenosis, lumbar region with neurogenic claudication
[2021-10-27] MEDS ORDERED: hydrALAZINE HCL 20 MG/ML VIAL IV PRN (20:15)
[2021-10-27] MEDS ORDERED: GLUCOSE 10 TABS/TUBE PO PRN (20:30)
[2021-10-27] MEDS ORDERED: CARBOHYDRATES FOR HYPOGLYCEMIA PO PRN (20:30)
[2021-10-27] MEDS ORDERED: GLUCAGON FOR INJ 1 MG VIAL IM PRN (20:30)
[2021-10-27] MEDS ORDERED: DEXTROSE 50% 50 ML SYRINGE IV PRN (20:30)
[2021-10-27] MEDS ORDERED: GLUCOSE 40% GEL 15 GM TUBE PO PRN (20:30)
--- NOTE | 2021-10-27 21:11 | Magnetic Resonance Report ---
MR brain wo con HISTORY: 81 years-old Male R/O stroke acute strokelike symptoms COMPARISON: Brain MRI 09/10/2020 TECHNIQUE: Multiplanar multisequence MRI of the brain was obtained without the use of IV contrast. FINDINGS: General Activities Therapist localizer images demonstrate no gross extracranial abnormality. Motion degraded exam. This no r estricted diffusion to suggest acute or subacute infarct. No acute intracranial hemorrhage, midline s hift, abnormal extra-axial collection, hydrocephalus or intracranial mass. Chronic infarct of the lef t posterior cerebral artery distribution with encephalomalacia and gliosis. Expected ex vacuo ventric ulomegaly of the posterior and temporal horns of the left lateral ventricle. Age- related involutiona l changes with ex vacuo ventriculomegaly. Mild to moderate T2/FLAIR hyperintensities throughout the w niurka matter are suggestive of chronic microvascular ischemic disease. Cerebral venous sinuses and major arterial flow voids appear patent. Trace mastoid effusions. Mild mu cosal thickening of the paranasal sinuses. Prior bilateral lens replacement. Skull and soft tissues a re unremarkable. IMPRESSION: 1. No acute intracranial abnormality. No acute or subacute infarct. 2. Age-related involutional changes with chronic microvascular ischemic disease. 3. Chronic left posterior cerebral artery infarct with chronic lacunar infarcts of the cerebellum. ACT 112: Negative or not required by law. The above report was generated using voice recognition software. It may contain grammatical, syntax o r spelling errors. Electronically signed by: Kurt Gallo M.D. 10/27/2021 9:09 PM
[2021-10-27] MEDS ORDERED: ALBUTEROL HFA 8 GM INHALER INH PRN (21:41)
[2021-10-27] MEDS: ASPIRIN 81 MG ECTAB PO SCH (22:16)
[2021-10-27] MEDS: ENOXAPARIN INJ 40 MG/0.4 ML SYR SQ SCH (22:16)
[2021-10-27] MEDS: traMADol HCL 50 MG TABLET PO SCH (22:17)
[2021-10-27] MEDS: INSULIN ASPART PER UNIT SC SCH (22:17)
[2021-10-27] MEDS: DULoxetine HCL 60 MG CAP PO SCH (22:19)
[2021-10-27] MEDS: LATANOPROST 0.005% OP SOLN 2.5 ML BTL OPB SCH (22:20)
[2021-10-27] MEDS: TAMSULOSIN HCL 0.4 MG CAP PO SCH (22:20)
[2021-10-27] MEDS: amLODIPine BESYLATE 5 MG TAB PO SCH (22:21)
[2021-10-27] MEDS: FINASTERIDE 5 MG TAB PO SCH (22:21)
[2021-10-27] MEDS: GABAPENTIN 300 MG CAP PO SCH (22:21)
[2021-10-28] MEDS: MAGNESIUM SULFATE / D5W 1 GM/100 ML BAG IV SCH ×2 (04:39→05:29)
[2021-10-28 05:33] LABS: Basophils # (auto) 0.03 K/uL (0-0.2); Basophils % (auto) 0.4 %; Eosinophils # (auto) 0.45 K/uL (0-0.5); Eosinophils % (auto) 5.8 %; Hematocrit (blood only) 29.7 % (42-52); Hemoglobin 9.3 g/dL (14.0-18.0); Immature Granulocytes # (auto) 0.02 K/uL (0.00-0.02); Immature Granulocytes % (auto) 0.3 %; Lymphocytes # (auto) 1.65 K/uL (1.2-3.4); Lymphocytes % (auto) 21.2 %; Mean Corpuscular Hemoglobin 21.3 pg (25-34); Mean Corpuscular Hgb Conc 31.3 g/dL (32-36); Mean Corpuscular Volume 68.1 fL (80-100); Mean Platelet Volume 9.6 fL (7.4-10.4); Monocytes # (auto) 0.54 K/uL (0.11-0.59); Monocytes % (auto) 6.9 %; Neutrophils % (auto) 65.4 %; Platelet Count 558 K/uL (130-400); RDW Coefficient of Variation 16.2 % (11.5-14.5); RDW Standard Deviation 40.2 fL (36.4-46.3); Red Blood Count 4.36 M/uL (4.7-6.1); White Blood Count 7.79 K/uL (4.8-10.8)
[2021-10-28 05:55] LABS: BUN Creatinine Ratio 51.8 (10-20); Calcium 9.4 mg/dl (8.5-10.1); Creatinine Clr Calc Pharmacy 89.3 ml/min; Est GFR (African American) 110.9 ml/min; Est GFR (Non-African American) 95.7 ml/min; Magnesium 1.8 mg/dl (1.7-2.4); Potassium 4.3 mmol/L (3.5-5.1)
[2021-10-28 05:59] LABS: Hypochromasia Present; Microcytosis Present
[2021-10-28 07:13] LABS: Estimated Average Glucose 186 mg/dl; Hemoglobin A1C 8.1 % (4.5-5.6)
[2021-10-28] MEDS: GABAPENTIN 300 MG CAP PO SCH ×3 (08:21→20:03)
[2021-10-28] MEDS: amLODIPine BESYLATE 5 MG TAB PO SCH (08:21)
[2021-10-28] MEDS: PANTOprazole 40 MG TAB PO SCH (08:21)
[2021-10-28] MEDS: CLOPIDOGREL BISULFATE 75 MG TAB PO SCH (08:21)
[2021-10-28] MEDS: LOSARTAN POTASSIUM 50 MG TAB PO SCH (08:22)
[2021-10-28] MEDS: CYANOCOBALAMIN (B-12) 500 MCG TABLET PO SCH (08:22)
[2021-10-28] MEDS: MAGNESIUM OXIDE 400 MG TAB PO SCH (08:22)
[2021-10-28] MEDS: ASPIRIN 81 MG ECTAB PO SCH (08:22)
[2021-10-28] MEDS: CHOLECALCIFEROL 1,000 UNITS 25 MCG TAB PO SCH (08:22)
[2021-10-28] MEDS: ATORVASTATIN 40 MG TAB PO SCH (08:22)
--- NOTE | 2021-10-28 08:26 | Electrocardiogram Report ---
Test Reason : Blood Pressure : / mmHG Vent. Rate : 087 BPM Atrial Rate : 087 BPM P-R Int : 164 ms QRS Dur : 068 ms QT Int : 368 ms P-R-T Axes : 066 007 054 degrees QTc Int : 442 ms Normal sinus rhythm Normal ECG When compared with ECG of 09-SEP-2020 16:36, No significant change was found Confirmed by Chon Martinez ([id number]) on 10/28/2021 8:25:36 AM Referred By: Arnol Mann Confirmed By:Chon Martinez
[2021-10-28] MEDS: INSULIN ASPART PER UNIT SC SCH ×4 (08:27→20:06)
--- NOTE | 2021-10-28 15:05 | Consultation Report ---
NEUROLOGY CONSULTATION NOTE DATE OF SERVICE: 10/28/2021. CHIEF COMPLAINT: Left upper extremity weakness. HISTORY OF PRESENT ILLNESS: An 81-year-old male admitted to [facility] on 10/27/2021 for 2 days of left upper extremity weakness. 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 He had been complaining of 2 days of left arm weakness without numbness. There was no pain associated with the left arm. Most of the history was taken from the daughter. He is wheelchair bound due to polio. He noted some headache, although no changes in speech or swallowing. He does complain of back pain and pain with defecation. He was mildly hypertensive in the emergency room. He was admitted for further stroke evaluation. Neurology was consulted upon admission. ALLERGIES: No known drug allergies. HOME MEDICATIONS: Norvasc, Lipitor, vitamin D, Plavix, vitamin B12, Cymbalta, gabapentin 300 mg 3 times daily, meloxicam, metformin, Protonix, tamsulosin, tramadol, albuterol, losartan, magnesium oxide. PAST MEDICAL HISTORY: Non-insulin dependent diabetes, gastroesophageal reflux disease, history of poliomyelitis, cerebrovascular accident, hypercholesterolemia, leg weakness, spinal stenosis. PAST SURGICAL HISTORY: Colonoscopy, tooth extraction, cataracts. FAMILY HISTORY: Daughter has diabetes. No other pertinent family history. SOCIAL HISTORY: Currently living with a daughter. He is wheelchair bound. Former smoker. No alcohol use. REVIEW OF SYSTEMS: All other review of systems was negative except as noted above in the HPI. PHYSICAL EXAMINATION: VITAL SIGNS: Blood pressure 133/72, pulse is 78, respiratory rate 18, temperature 36.7 degrees Celsius, oxygen saturation is 99% on room air. GENERAL: The patient appears chronically ill, no acute distress. HEENT: Head is normocephalic and atraumatic. Normal eyelids. Normal conjunctivae. NECK: Supple. CARDIAC: Normal cardiac pulses. LUNGS: Breathing is nonlabored. ABDOMEN: Nontender. EXTREMITIES: No significant lower extremity edema. SKIN: No skin rash noted. PSYCHIATRIC: Normal mood. NEUROLOGIC: He is awake, alert, oriented to person, place. He is following simple commands. His speech is clear. Face is symmetric. Eyes are midline. Extraocular muscles intact. Pupils are symmetric. Shoulder shrug is intact. Sensation is intact in the upper and lower extremities. Muscle exam chronic weakness in both lower extremities. Reflexes are hypoactive. He has no tremor or myoclonic jerks. DIAGNOSTIC TESTING AND LABORATORY VALUES: WBC 7.79, hemoglobin 9.3, platelet count 558. INR is 1.0. Sodium is 136, potassium 4.3, chloride 106, carbon dioxide 24, BUN 29, creatinine 0.56, glucose 153. TSH is normal at 0.83. Urinalysis showed 1+ protein, 5-10 epithelial cells. IMAGING: MRI of the brain showed no acute intracranial abnormality. No acute or subacute infarct. Age-related involutional changes with chronic microvascular ischemic disease. Chronic left posterior cerebral artery infarct with chronic lacunar infarcts of the cerebellum. CTA head and neck showed chronic left posterior cerebral artery infarct with chronic lacunar infarcts of the left cerebellar hemisphere. Atherosclerotic plaque left greater than right of the carotid bulbs with less than 50% stenosis. Stenosis of the proximal V1 segment of the vertebral arteries, severe on the right, mild to moderate multifocal stenosis of the posterior cerebral arteries. No aneurysm. CT of the head showed no acute intracranial abnormality. Chronic left posterior cerebral artery infarct with chronic lacunar infarcts in the left cerebellum. ASSESSMENT AND PLAN: An 81-year-old male with a history of non-insulin dependent diabetes, history of poliomyelitis with residual lower extremity weakness and history of prior cerebrovascular accident on Plavix 75 mg daily for secondary stroke prevention admitted for subacute onset of left upper extremity weakness. MRI of the brain shows no evidence of acute ischemic stroke. CTA of the head and neck consistent with peripheral vascular disease. Agree with continuing Plavix 75 mg daily for secondary stroke prevention. 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 A diabetic amyotrophy involving the proximal extremity seems less likely given there is no pain. The patient would benefit from an EMG in roughly 4 weeks of the left upper extremity. Other considerations include an MRI of the brachial plexus, although this can be done as an outpatient. No additional neurological recommendations at this time. Job ID: [id number] [facility]
--- NOTE | 2021-10-28 18:26 | Hospitalist Progress Note ---
Date of Service October 28, 2021 Assessment & Plan (1) H/O: CVA (cerebrovascular accident): Plan: continue aspirin, plavix, statin (2) H/O poliomyelitis: Plan: History of Poliomyelitis with paraplegia (3) Diabetes: Plan: We will hold Metformin and Jardiance--can resume at discharge Start SSI and check hemoglobin A1c (4) Spinal stenosis of lumbar region: Plan: Has chronic back pain We will continue current medications, add baclofen 10mg BID (5) Hypertension: Plan: continue current medications (6) Hypercholesterolemia: Plan: Continue statin DVT prophylaxis Subcu heparin CODE STATUS Full (7) Arm weakness: Plan: Per chart it is left arm. Patient reports it is right arm but he is admittedly a poor historian. Also with right arm and back pain and spasm Family reports it has been ongoing for past several days "at least since last week" Ruled out for acute stroke with negative MRI brain. 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 For definitive diagnosis, would need OP EMG Right arm and back spasm/pain. Will place on trial of baclofen 10mg BID Plan: Discussed with grand daughter (daughter was called but unavailable) Plan to discharge home with family tomorrow. OP follow up with Neurology if desired Admission and Anticipated Discharge Date Admission Date: October 27, 2021 Subjective Patient is a poor historian but reports back and right arm pain Physical Exam Physical Exam: Appears stated age, appears debilitated, chronically ill Respiratory: breathing comfortably on room air Cardiovascular: regular rate and rhythm, no murmurs/rubs/gallops Gastrointestinal (Abdomen): soft Musculoskeletal: peripheral muscle wasting Neurologic: awake, bilateral legs are atrophied, left arm atrophy, right arm with some movement Results & Data Results & Data ([facility]) Vital Signs (Past 12 Hours) Vital Signs Temp Pulse Pulse Resp BP Pulse Ox 10/28/21 16:44 82 10/28/21 16:05 36.6 C 87 18 143/76 H 98 10/28/21 11:53 36.7 C 78 18 133/72 99 10/28/21 09:16 85 10/28/21 06:57 36.3 C L 89 20 114/71 99 Laboratory Results Short CBC 10/28/21 Range/Units 05:08 WBC 7.79 (4.8-10.8) K/uL Hgb 9.3 L (14.0-18.0) g/dL Hct 29.7 L (42-52) % Plt Count 558 H (130-400) K/uL [facility] 10/28/21 05:08 Sodium 136 Potassium 4.3 Chloride 106 Carbon Dioxide 24 BUN 29 H Creatinine 0.56 L Glucose 153 H Calcium 9.4 Medications Administered Current Inpatient Medications Albuterol (Albuterol Hfa 8 Gm Inhaler) 2 puffs INH Q4R PRN PRN Reason: sough,sob,wheeze Stop: 11/26/21 21:40 Amlodipine Besylate (Amlodipine Besylate 5 Mg Tab) 5 mg PO QAM AYDEN Stop: 11/26/21 21:59 Last Admin: 10/28/21 08:21 Dose: 5 mg Documented by: Aspirin (Aspirin 81 Mg Ectab) 81 mg PO DAILY AYDEN Stop: 11/26/21 19:14 Last Admin: 10/28/21 08:22 Dose: 81 mg Documented by: Atorvastatin Calcium (Atorvastatin 40 Mg Tab) 40 mg PO QAM AYDEN Stop: 11/27/21 08:59 Last Admin: 10/28/21 08:22 Dose: 40 mg Documented by: Baclofen (Baclofen 10 Mg Tab) 10 mg PO BID AYDEN Stop: 11/27/21 20:59 Clopidogrel Bisulfate (Clopidogrel Bisulfate 75 Mg Tab) 75 mg PO QAM AYDEN Stop: 11/27/21 08:59 Last Admin: 10/28/21 08:21 Dose: 75 mg Documented by: Cyanocobalamin (Cyanocobalamin (B-12) 500 Mcg Tablet) 1,000 mcg PO QAM AYDEN Stop: 11/27/21 08:59 Last Admin: 10/28/21 08:22 Dose: 1,000 mcg Documented by: Dextrose (Dextrose 50% 50 Ml Syringe) 25 - 50 ml IV UD PRN; Protocol PRN Reason: Hypoglycemia Protocol Stop: 11/26/21 20:29 Duloxetine HCl (Duloxetine Hcl 60 Mg Cap) 60 mg PO QPM AYDEN Stop: 11/26/21 21:59 Last Admin: 10/27/21 22:19 Dose: 60 mg Documented by: Enoxaparin Sodium (Enoxaparin Inj 40 Mg/0.4 Ml Syr) 40 mg SQ HS AYDEN Stop: 11/26/21 19:14 Last Admin: 10/27/21 22:16 Dose: 40 mg Documented by: Finasteride (Finasteride 5 Mg Tab) 5 mg PO PM AYDEN Stop: 11/26/21 21:59 Last Admin: 10/27/21 22:21 Dose: 5 mg Documented by: Gabapentin (Gabapentin 300 Mg Cap) 300 mg PO TID AYDEN Stop: 11/26/21 21:59 Last Admin: 10/28/21 14:37 Dose: 300 mg Documented by: Glucagon (Glucagon For Inj 1 Mg Vial) 1 mg IM UD PRN; Protocol PRN Reason: Hypoglycemia Protocol Stop: 11/26/21 20:29 Glucose (Glucose 40% Gel 15 Gm Tube) 15 - 30 gm PO UD PRN; Protocol PRN Reason: Hypoglycemia Protocol Stop: 11/26/21 20:29 Glucose (Glucose 10 Tabs/Tube) 4 - 8 tabs PO UD PRN; Protocol PRN Reason: Hypoglycemia Protocol Stop: 11/26/21 20:29 Hydralazine HCl (Hydralazine Hcl 20 Mg/Ml Vial) 5 mg IV Q6H PRN PRN Reason: Blood Pressure - High Stop: 11/26/21 20:14 Insulin Aspart (Insulin Aspart Per Unit) 0 units SC ACHS AYDEN Stop: 11/26/21 20:59 Last Admin: 10/28/21 17:37 Dose: Not Given Documented by: Latanoprost (Latanoprost 0.005% Op Soln 2.5 Ml Btl) 1 drops OPB HS AYDEN Stop: 11/26/21 21:59 Last Admin: 10/27/21 22:20 Dose: 1 drops Documented by: Losartan Potassium (Losartan Potassium 50 Mg Tab) 50 mg PO DAILY AYDEN Stop: 11/27/21 08:59 Last Admin: 10/28/21 08:22 Dose: 50 mg Documented by: Magnesium Oxide (Magnesium Oxide 400 Mg Tab) 400 mg PO DAILY AYDEN Stop: 11/27/21 08:59 Last Admin: 10/28/21 08:22 Dose: 400 mg Documented by: Miscellaneous (Carbohydrates For Hypoglycemia ) 15 - 30 gm PO UD PRN PRN Reason: Hypoglycemia Treatment Stop: 11/26/21 20:29 Pantoprazole Sodium (Pantoprazole 40 Mg Tab) 40 mg PO QAM AYDEN Stop: 11/27/21 08:59 Last Admin: 10/28/21 08:21 Dose: 40 mg Documented by: Tamsulosin HCl (Tamsulosin Hcl 0.4 Mg Cap) 0.4 mg PO PM [facility] Stop: 11/26/21 21:59 Last Admin: 10/27/21 22:20 Dose: 0.4 mg Documented by: Tramadol HCl (Tramadol Hcl 50 Mg Tablet) 50 mg PO HS [facility] Stop: 11/26/21 21:40 Last Admin: 10/27/21 22:17 Dose: 50 mg Documented by: Vitamin D (Cholecalciferol 1,000 Units 25 Mcg Tab) 1,000 units PO QAM [facility] Stop: 11/27/21 08:59 Last Admin: 10/28/21 08:22 Dose: 1,000 units Documented by: (1) Spinal stenosis of lumbar region Neurogenic claudication status: with neurogenic claudication Qualified Code(s): M48.062 - Spinal stenosis, lumbar region with neurogenic claudication
[2021-10-28] MEDS: traMADol HCL 50 MG TABLET PO SCH (20:01)
[2021-10-28] MEDS: BACLOFEN 10 MG TAB PO SCH (20:01)
[2021-10-28] MEDS: FINASTERIDE 5 MG TAB PO SCH (20:02)
[2021-10-28] MEDS: ENOXAPARIN INJ 40 MG/0.4 ML SYR SQ SCH (20:02)
[2021-10-28] MEDS: DULoxetine HCL 60 MG CAP PO SCH (20:02)
[2021-10-28] MEDS: LATANOPROST 0.005% OP SOLN 2.5 ML BTL OPB SCH (20:03)
[2021-10-28] MEDS: TAMSULOSIN HCL 0.4 MG CAP PO SCH (20:03)
[2021-10-29 06:43] LABS: Hematocrit (blood only) 29.9 % (42-52); Hemoglobin 9.3 g/dL (14.0-18.0); Mean Corpuscular Hemoglobin 21.1 pg (25-34); Mean Corpuscular Hgb Conc 31.1 g/dL (32-36); Mean Platelet Volume 9.7 fL (7.4-10.4); Platelet Count 572 K/uL (130-400); RDW Coefficient of Variation 16.2 % (11.5-14.5); RDW Standard Deviation 40.1 fL (36.4-46.3); White Blood Count 9.67 K/uL (4.8-10.8)
[2021-10-29 07:15] LABS: BUN Creatinine Ratio 44.2 (10-20); Calcium 8.6 mg/dl (8.5-10.1); Creatinine Clr Calc Pharmacy 58.5 ml/min; Est GFR (African American) 97.3 ml/min; Est GFR (Non-African American) 83.9 ml/min; Potassium 4.4 mmol/L (3.5-5.1)
[2021-10-29 08:07] LABS: Folate (Folic Acid) 7.66 ng/ml (>5.38)
[2021-10-29] MEDS: CLOPIDOGREL BISULFATE 75 MG TAB PO SCH (08:31)
[2021-10-29] MEDS: CYANOCOBALAMIN (B-12) 500 MCG TABLET PO SCH (08:31)
[2021-10-29] MEDS: LOSARTAN POTASSIUM 50 MG TAB PO SCH (08:32)
[2021-10-29] MEDS: GABAPENTIN 300 MG CAP PO SCH (08:32)
[2021-10-29] MEDS: CHOLECALCIFEROL 1,000 UNITS 25 MCG TAB PO SCH (08:32)
[2021-10-29] MEDS: PANTOprazole 40 MG TAB PO SCH (08:32)
[2021-10-29] MEDS: ATORVASTATIN 40 MG TAB PO SCH (08:32)
[2021-10-29] MEDS: INSULIN ASPART PER UNIT SC SCH ×2 (08:32→12:33)
[2021-10-29] MEDS: ASPIRIN 81 MG ECTAB PO SCH (08:32)
[2021-10-29] MEDS: BACLOFEN 10 MG TAB PO SCH (08:32)
[2021-10-29] MEDS: amLODIPine BESYLATE 5 MG TAB PO SCH (08:32)
[2021-10-29] MEDS: MAGNESIUM OXIDE 400 MG TAB PO SCH (08:32)
--- NOTE | 2021-10-29 11:21 | Discharge Summary ---
Date of Service October 29, 2021 Admission HPI Per Admitting Provider He is an 81-year-old male with significant past medical history including poliomyelitis with paraplegia, type 2 diabetes, hypertension, hyperlipidemia, spinal stenosis with chronic back pain, COPD and history of CVA with right-sided hemiparesis apparently has been complaining of left upper extremity weakness for the last 2 days. He denies any numbness and or tingling involving the left upper extremity and denies any significant pain involving the left shoulder. Part of the history was taken from the daughter. She was noted to have left upper extremity weakness for the last 2 days to the extent that he cannot sit on a chair which he was doing before and he has been wheelchair-bound due to polio He complains of some headache but without any blurred vision, any problem with his speech or any problem with swallowing. He also complains to have back pain and pain in the rectal area especially during defecation and which has been an ongoing problem though he is not constipated. He was noted to be minimally hypertensive at 160/71 in the emergency room and apparently scan did show stenosis involving the neck vessels with old stroke but no new lesions. He will have an MRI rule out any possibility of a stroke during this admission. Principal Diagnosis Post polio syndrome Right arm contractures/pain Discharge Exam No acute distress Appears chronically debilitated Bilateral leg atrophy and paralysis Left arm atrophy and paralysis Right arm with contractures but with movement Discharge Data Allergies Allergy/AdvReac Type Severity Reaction Status Date / Time No Known Allergies Allergy Verified 10/27/21 16:29 Consultations 10/27/21 18:52 ED Decision to Admit Stat 10/28/21 08:08 Consult Neurology Routine Ordered Studies 10/27/21 16:13 CT angio head w con Stat CT angio neck with con Stat CT head/brain wo con Stat 10/27/21 19:09 MR brain wo con Urgent Hospital Course (1) H/O: CVA (cerebrovascular accident): continue aspirin, plavix, statin (2) H/O poliomyelitis: History of Poliomyelitis with paraplegia (3) Diabetes: We will hold Metformin and Jardiance--can resume at discharge Start SSI and check hemoglobin A1c (4) Spinal stenosis of lumbar region: Has chronic back pain We will continue current medications, add baclofen 10mg BID (5) Hypertension: continue current medications (6) Hypercholesterolemia: Continue statin DVT prophylaxis Subcu heparin CODE STATUS Full (7) Arm weakness: Patient lives at home with his family. He is bedbound at baseline and also appears to have left arm paralysis. Patient presented with back pain and right arm pain/spasm/weakness. (Per chart it is left arm but patient reports it is his right arm) Family reports it has been ongoing for past several days "at least since last week" He was admitted for stroke workup which was ultimately negative. CTA head/neck shows significant vascular disease, he is already on antiplatelet therapy He was seen by Neurology and felt his symptoms are most consistent with post polio syndrome. For definitive diagnosis, would need OP EMG He was started on a trial of baclofen 10mg BID which significantly helped his pain and spasm and he was discharged on this. He can continue his remaining home medications.. Discussed with grand daughter 10/28 (daughter was called but unavailable) Family will take him home. They can follow up with Neurology for EMG as an outpatient if desired Total Time Total Time Spent Total Time Spent (In Minutes): 35 Discharge Plan Discharge Items Patient Disposition: Home - Self-Care Reason For Visit: LEFT UE WEAKNESS Discharge Diagnosis: Post polio syndrome Condition on Discharge: Fair Activity: Resume your previous activity Non-emergency contact: Primary Care Provider and Specialist Call non-emergency contact if: you have any medication questions, your symptoms worsen and your pain is not controlled Follow-up/Referrals: Arnol Mann MD [Primary Care Provider] - Diet: Carb Consistent or DM2 Addtl Attending Provider Instructions: You were admitted for arm weakness and pain You had a negative stroke work up here You were seen by Neurology and felt that your symptoms are related to your history of Polio For your pain, you were started on Baclofen 10mg twice a day which seems to have helped. You were given a prescription for that. For refills, please contact your PCP You can follow up with the Neurologist for a EMG (muscle conduction study) for further workup if desired. Pending Studies at Discharge: No Stand-Alone Forms: [employer] ([employer]), Smoking Cessation Medications and DC Order Prescriptions: New baclofen 10 mg Tablet 10 mg PO BID 30 Days Qty: 60 RF: 0 Continued latanoprost 0.005 % drops 1 drp OPB HS RF: 0 atorvastatin 40 mg tablet 40 mg PO QAM RF: 0 cyanocobalamin (vitamin B-12) [Vitamin B-12] 1,000 mcg Tablet 1,000 mcg PO QAM RF: 0 clopidogrel 75 mg tablet 75 mg PO QAM RF: 0 amlodipine 5 mg tablet 5 mg PO QAM RF: 0 meloxicam 7.5 mg tablet 7.5 mg PO QAM RF: 0 tamsulosin 0.4 mg Capsule 0.4 mg PO PM RF: 0 pantoprazole 40 mg tablet,delayed release (DR/EC) 40 mg PO QAM RF: 0 metformin 1,000 mg tablet 1,000 mg PO BIDM RF: 0 gabapentin 300 mg capsule 300 mg PO TID RF: 0 finasteride 5 mg tablet 5 mg PO PM RF: 0 duloxetine 60 mg capsule,delayed release(DR/EC) 60 mg PO QPM RF: 0 cholecalciferol (vitamin D3) [Vitamin D3] 25 mcg (1,000 unit) Tablet 25 mcg PO QAM RF: 0 Januvia 100 mg tablet 100 mg PO QAM RF: 0 tramadol 50 mg Tablet 50 mg PO HS RF: 0 magnesium oxide 400 mg magnesium Tablet 400 mg PO DAILY RF: 0 losartan 50 mg tablet 50 mg PO DAILY RF: 0 albuterol sulfate [Ventolin HFA] 90 mcg/actuation HFA aerosol inhaler 2 puff INHALATION Q4 PRN (Reason: sough,sob,wheeze) RF: 0 Discharge Orders: Discharge Order (Routine); Ordered 10/29/21 Ordered By: Eugene Hankins/Other Patient Handouts: Managing Type 2 Diabetes Admission Data Admit Date/Time: 10/27/21 19:05 Attending Provider: Eugene Puga Admit Provider: Darrin Foster Primary Care Provider: Arnol Mann Other Providers: Darrin Foster ; Chaz Strong Other Interventions: Discharge Summary Assessment (RN) Last Done: 10/29/21 11:33
== END 2021-10-29 13:41 | disposition home or self-care (01) | DRG 92 ==
LOC: ED 15:31 → INTOOBSV 19:05 → SUATTDRO 19:05 → OBSVTOIN 19:05 → 2N 19:05